=== PATIENT | female | born 1990 | race Caucasian/White ===

== ENCOUNTER 2018-11-26 11:08 | Outpatient (REF) | payer SELFPAY ==
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
== END 2018-11-26 11:28 ==
LOC: NCHCN 11:08
PROVIDERS: PCP Family Medicine; Visit Provider Family Medicine
DX: Z12.4 Encounter for screening for malignant neoplasm of cervix (principal); Z00.00 Encounter for general adult medical examination without abnormal findings
CPT/HCPCS: 88142

== ENCOUNTER 2022-02-24 12:02 | Outpatient (REF) | payer BC, SELFPAY ==
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
== END 2022-02-24 12:03 | disposition home or self-care (01) ==
LOC: NCHCN 12:02
PROVIDERS: PCP Family Medicine; Visit Provider Family Medicine
DX: Z12.4 Encounter for screening for malignant neoplasm of cervix (principal); Z11.51 Encounter for screening for human papillomavirus (HPV)
CPT/HCPCS: 88142; 87624

== ENCOUNTER → 2022-03-22 02:19 | Outpatient (CLI) | payer BC, SELFPAY ==
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
== END ==
PROVIDERS: PCP Family Medicine; Visit Provider Family Medicine
DX: Z12.31 Encounter for screening mammogram for malignant neoplasm of breast (principal); R92.8 Other abnormal and inconclusive findings on diagnostic imaging of breast
CPT/HCPCS: 76642; 77062; 77066; G0279

== ENCOUNTER 2023-02-22 08:36 | Emergency (ER) | payer BC, SELFPAY ==
[2023-02-22 08:37] VITALS: BP 154/76; PULSE 135; RESP 16; O2SAT 99
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
[2023-02-22 08:48] VITALS: BP 164/88; PULSE 140; O2SAT 99
[2023-02-22 08:49] VITALS: O2SAT 98
[2023-02-22 08:50] VITALS: O2SAT 99
[2023-02-22] MEDS: LORazepam 0.5 MG TAB PO (08:50)
[2023-02-22] MEDS: fentaNYL 100 MCG/2 ML VIAL 50 MCG IM (08:55)
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
[2023-02-22 09:00] VITALS: BP 117/82; PULSE 106; O2SAT 100
[2023-02-22 09:01] VITALS: O2SAT 98
[2023-02-22 09:59] LABS: Abs Immature Grans 0.05 10^3/uL (0.0-0.06); Absolute Basophil Count 0.02 10^3/uL (0.0-0.2); Absolute Eosinophil Count 0.04 10^3/uL (0.0-0.7); Absolute Lymphocyte Count 1.62 10^3/uL (1.2-3.4); Absolute Monocyte Count 0.68 10^3/uL (0.1-0.8); Basophils % 0.2; Eosinophils % 0.3; HCT 38.6 % (36.0-46.0); HGB 13.3 g/dL (11.2-15.7); Immature Grans % 0.4; Lymphocytes % 13.7; MCH 27.7 pg (27.0-33.0); MCHC 34.5 % (32.0-36.0); MCV 80 fL (80-95); MPV 9.1 fL (8.0-11.0); Monocytes % 5.8; Neutrophils % 79.6; Platelet Count 378 10^3/uL (130-400); RBC 4.81 10^6/uL (3.93-5.22); RDW-SD 35.1 fL; WBC 11.81 10^3/uL (4.4-10.8)
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
[2023-02-22 10:16] LABS: Amylase 38 U/L (25-115); Lipase 27 U/L (16-77)
[2023-02-22 10:30] LABS: ETHANOL BLOOD < 3.0 mg/dL (<10)
[2023-02-22] MEDS: fentaNYL 100 MCG/2 ML VIAL 50 MCG IVP ×2 (10:32→11:40)
[2023-02-22 10:53] LABS: ALT 35 U/L (14-59); AST 23 U/L (15-37); Albumin 3.9 g/dL (3.4-5.0); Alkaline Phosphatase 127 U/L (46-116); Anion Gap 12.6 mmol/L (3-11); BUN 16 mg/dL (7-18); Bilirubin, Total 0.3 mg/dL (0.2-1.0); CO2 21.4 mmol/L (21.0-32.0); CREATININE 0.6 mg/dL (0.55-1.02); Calcium 8.7 mg/dL (8.5-10.1); Chloride 104 mmol/L (98-107); Estimated GFR 122.23 (mL/min/1.73m2); Glucose 184 mg/dL (74-106); Magnesium 1.6 mg/dL (1.8-2.4); Potassium 3.4 mmol/L (3.5-5.1); Sodium 138 mmol/L (136-145); Total Protein 7.5 g/dL (6.4-8.2)
[2023-02-22] MEDS: ACETAMINOPHEN 1,000 MG/100 ML BTL 400 MG IVPB (11:20)
== END 2023-02-22 12:23 | disposition short-term general hospital (02) ==
PROVIDERS: Emergency Provider Student in an Organized Health Care Education/Training Program; PCP Family Medicine
DX: S82.891A Other fracture of right lower leg, initial encounter for closed fracture (principal); V43.52XA Car driver injured in collision with other type car in traffic accident, initial encounter
CPT/HCPCS: 36415; 80053; 83690; 96365; 96372; 96374; 99285; 71046; 72170; 73590; 73610; 73630; 80320; 81003; 82150; 83735; 85025; J0131; J3010

== ENCOUNTER 2025-01-13 12:04 | Outpatient (CLI) | payer BC, SELFPAY ==
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
== END 2025-01-13 12:05 | disposition home or self-care (01) ==
LOC: DIORS 12:05
PROVIDERS: PCP Family Medicine; Referring Provider Family Medicine; Visit Provider Physician Assistant
DX: R22.42 Localized swelling, mass and lump, left lower limb (principal)
CPT/HCPCS: 73590

== ENCOUNTER 2025-02-20 02:04 | Outpatient (CLI) | payer BC, SELFPAY ==
[2025-02-20] MEDS: Gadoterate meglumine 20 ML SYRINGE IVP (08:26)
[2025-02-20] MEDS: Normal Saline Flush 10 ML SYR IVP (08:27)
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
== END 2025-02-20 02:24 ==
LOC: DI 02:04
PROVIDERS: PCP Family Medicine; Visit Provider Student in an Organized Health Care Education/Training Program
DX: R22.42 Localized swelling, mass and lump, left lower limb (principal)
CPT/HCPCS: 73720